=== PATIENT | female | born 1990 | race Caucasian/White ===

== ENCOUNTER 2016-12-01 18:55 | Inpatient (IN) | payer OTHER ==
[~2016-12-01] VITALS: Ht 170.2 cm; Wt 78.5 kg
--- NOTE | ~2016-12-01 | FD ---
ADMIT: 12/01/2016 RM/LOC: [address] [facility] MR#: [id number] [address] [id number] SHELLEY KUMAR [address] [place] [address] Final Diagnosis SEX: F AGE: 26 : 1990 ADMISSION DATE: 12/01/2016 DISCHARGE DATE: 12/04/2016 FINAL DIAGNOSIS: 1. Term intrauterine at 41 weeks. 2. Post dates. PROCEDURE: Spontaneous vaginal delivery. Jessica Holland MD/ abigail JOB #: [id number] CC: Jessica Holland MD, Attending Physician Jessica Holland MD, Family Physician
[2016-12-06] MEDS ORDERED: PRENATAL VIT1 TAB PO (13:46)
[2016-12-06] MEDS ORDERED: MOTRIN-DPS800 MG PO (13:47)
[2016-12-06] MEDS ORDERED: DERMOPLAST SPRA56 GM TP (13:47)
[2016-12-06] MEDS ORDERED: TYLENOL EXTRA500 M1 PO (13:47)
[2016-12-06] MEDS ORDERED: NIPPLECREAM TP (13:48)
[2016-12-06] MEDS ORDERED: TUCKS1 EACH TP (13:48)
[2016-12-06] MEDS ORDERED: LAN-O-SOOTHE7 GM TP (13:48)
[2016-12-06] MEDS ORDERED: COLACE-DPS100 MG PO (13:49)
--- NOTE | 2016-12-17 07:20 | HP ---
ADMIT: 12/01/2016 RM/LOC: [facility] MR#: [id number] [address] [place] [id number] SHELLEY KUMAR [address] [place] [address] History and Physical SEX: F AGE: 26 : 1990 DATE OF SERVICE: HISTORY OF PRESENT ILLNESS: This is a 26-year-old , who presents to Labor and Delivery at 40 weeks and 6 days for induction of labor for post dates. Her has otherwise been uncomplicated. PAST MEDICAL HISTORY: None. PAST FOOD SERVICE CASHIER HISTORY: None. PAST SURGICAL HISTORY: She had a right elbow scope in 2003 and a right knee scope in 2005. Pap smear is up-to-date, last one was 03/2014. She has history of potential lead exposure, and lead screening was negative. She is not , but in a relationship with partner she knows, present and supportive. FAMILY HISTORY: Noncontributory. ALLERGIES: NO KNOWN DRUG ALLERGIES. MEDICATIONS: vitamin daily. FOOD SERVICE CASHIER LABS: GBS positive. Diabetes 1-hour Glucola was 82. Quad screen was negative. Varicella immune. PPD negative. Hepatitis B surface antigen negative. Blood screen was negative. RPR is nonreactive. Rubella immune. Blood type is B positive. Antibody screen negative. HIV negative. Gonorrhea and chlamydia were negative. PHYSICAL EXAMINATION: VITAL SIGNS: Blood pressure is 107/68, temperature is 96.6, pulse is 67, respirations 16. heart tones 140, moderate variability. Accelerations present. Decelerations, intermittent variables. Uterine contractions are every 1-5 minutes. GENERAL: The patient is in no acute distress. ADMIT: 12/01/2016 RM/LOC: [facility] MR#: [id number] [address] [place] [id number] SHELLEY KUMAR [address] [place] [address] History and Physical SEX: F AGE: 26 : 1990 HEART: Regular rate and rhythm. No murmurs, rubs, or gallops. LUNGS: Clear to auscultation bilaterally. ABDOMEN: Gravid. Estimated weight is approximately 3500 g. Digital cervical exam was 1 cm, thick, and -1 station. ASSESSMENT AND PLAN: This is a 26-year-old , who presents to Labor and Delivery at 40 weeks and 6 days for induction of labor with Cytotec for post dates. 1. Anticipate normal spontaneous vaginal delivery. We will start Pitocin with Cytotec, and proceed to Pitocin and amniotomy as needed. 2. Group B streptococcus positive. Penicillin for prophylaxis. 3. Rhesus positive. Rubella and varicella immune. Jessica Holland MD/ juan carlos JOB #: [id number] CC: Jessica Holland, Attending Physician Jessica Holland, Family Physician
--- NOTE | 2016-12-17 07:25 | OR ---
ADMIT: 12/01/2016 RM/LOC: [address] [facility] MR#: [id number] [address] [place], [place] [id number] [address] [place] [address] Operative/Delivery Room Report SEX: F AGE: 26 : 1990 SURGERY DATE: 12/02/2016 SURGEON: Jessica Holland MD PREOPERATIVE DIAGNOSES: 1. Term intrauterine at 41 weeks. 2. Post dates. 3. Group B streptococcus positive. POSTOPERATIVE DIAGNOSES: 1. Term intrauterine at 41 weeks. 2. Post dates. 3. Group B streptococcus positive. PROCEDURE: Spontaneous vaginal delivery. ESTIMATED BLOOD LOSS: 300 mL. FINDINGS: Viable male with scores of 7 and 9 and weight of 7 pounds 14.5 ounces or 3586 g. Intact placenta with three-vessel cord. Second- degree perineal laceration requiring repair. INDICATIONS FOR PROCEDURE: This is a 26-year-old , who presented to Labor and Delivery for scheduled induction of labor, post dates at 40 weeks and 6 days. Her has been uncomplicated. She underwent induction with two doses of Cytotec and then started on Pitocin. She did have spontaneous rupture of membranes and progressed through labor and was found to be complete. DESCRIPTION OF PROCEDURE: With maternal expulsive efforts, head was delivered over intact perineum. No nuchal cord was noted. The rest of the ADMIT: 12/01/2016 RM/LOC: [address] [facility] MR#: [id number] [address] [place] [id number] [place] [address] Operative/Delivery Room Report SEX: F AGE: 26 : 1990 then delivered. The was placed on maternal chest. Delayed cord clamping was employed x1 minute. The cord was then clamped and cut. Cord blood was collected. Placenta then delivered spontaneously intact with a three-vessel cord. On examination of the perineum, there was a second-degree perineal laceration that was repaired in the standard fashion. Sponge and instrument counts were correct x2. ANTIBIOTICS: Penicillin for GBS prophylaxis. COMPLICATIONS: None. DISPOSITION: Mom stable to delivery room. to nursery. Jessica Holland MD/ juan carlos JOB #: [id number] CC: Jessica Holland, Attending Physician Jessica Holland, Family Physician
== END 2016-12-04 11:15 | disposition home or self-care (01) | DRG 775 ==
LOC: 2LDRP 18:55 → BC 18:55 → 2LDRP 19:29
PROC: 3E033VJ Introduction of Other Hormone into Peripheral Vein, Percutaneous Approach (ICD-10-PCS; principal; 2016-12-02)
PROC: 0KQM0ZZ Repair Perineum Muscle, Open Approach (ICD-10-PCS; principal; 2016-12-02)
PROC: 3E0P7GC Introduction of Other Therapeutic Substance into Female Reproductive, Via Natural or Artificial Opening (ICD-10-PCS; principal; 2016-12-02)
PROC: 10E0XZZ Delivery of Products of Conception, External Approach (ICD-10-PCS; principal; 2016-12-02)
DX: O48.0 Post-term pregnancy (principal); O99.824 Streptococcus B carrier state complicating childbirth; O70.1 Second degree perineal laceration during delivery; Z3A.40 40 weeks gestation of pregnancy; Z37.0 Single live birth